=== PATIENT | male | born 1960 | race African-American/Black ===

== ENCOUNTER 2022-05-13 15:26 | Emergency (ER) | payer BC ==
[~2022-05-13] VITALS: Ht 172.7 cm; Wt 75.0 kg
[2022-05-13] MEDS ORDERED: SODIUM CHLORIDE 0.9% 1,000 ML IV ONE (17:00)
[2022-05-13 17:10] LABS: HEMATOCRIT. 45.3 % (42.0-52.0); HEMOGLOBIN. 14.9 g/dL (14.0-18.0); MEAN CORPUSCULAR HEMOGLOBIN 28.9 pg (28.0-32.0); MEAN CORPUSCULAR VOLUME 87.5 fL (80.0-94.0); MEAN PLATELET VOLUME 9.2 fl (7.4-10.4); PLATELET 152 x1000/uL (130-400); RED BLOOD CELL COUNT 5.18 mill/uL (4.7-6.1); RED CELL DISTRIBUTION WIDTH 13.7 % (11.6-14.6)
[2022-05-13 17:20] LABS: CHLORIDE 101 mEq/L (98-107)
[2022-05-13 17:31] LABS: ETHANOL BLOOD < 10 mg/dL
[2022-05-13 20:17] VITALS: BP 112/71
[2022-05-13 20:23] LABS: PLATELET ESTIMATE NORMAL
== END 2022-05-13 21:56 | disposition left against medical advice (07) ==
LOC: ER 15:26 → EDBEDREQ 17:48 → EDBEDREQTM 17:48 → EDBEDREQ 18:48 → EDBEDREQTM 18:48 → ENRESERV 20:35 → CANRESERV 20:35 → ER 21:56 → CANBEDREQ 22:34
DX: R55 Syncope and collapse (principal); R42 Dizziness and giddiness; F17.290 Nicotine dependence, other tobacco product, uncomplicated; F12.10 Cannabis abuse, uncomplicated
CPT/HCPCS: 36415; 70450; 71045; 80053; 80320; 82962; 83690; 83880; 84484; 85025; 93005; 96360; 96361; 99285; J7030; G0480